=== PATIENT | male | born 1945 | race Caucasian/White ===

== ENCOUNTER 2022-04-16 10:26 | Emergency (ER) | payer MEDICARE ==
[2022-04-16 11:29] VITALS: O2SAT 98
[2022-04-16] MEDS ORDERED: TORAdol 30 mg Injection IM ONE (12:45)
[2022-04-16] MEDS ORDERED: TORAdol 30 mg Injection ONE (12:47)
--- NOTE | 2022-04-16 12:49 | ERPHSYRPT ---
- History of Present Illness Source: patient Exam Limitations: no limitations Patient Subjective Stated Complaint: Pt states "I have a chipped tooth and it started to swell up a couple of days ago and it is hurting." Triage Nursing Assessment: Pt presented alert and oriented X 3, skin pwd. PT ambulates iwth an upright steady gait, able to speak in clear full sentences pt in no apparent respiratory distress. Pt has slight swelling noted to lower left jaw. Physician History: 77 yo wm w poor dentition complains of dental pain x 8 days. Pain is 10 on scale. He has multiple missing teeth and states that one of his remaining teeth was fractured 1 year ago and now is painful. Chest pain/dyspnea/fever/nausea/vomiting are all denied. he has no trismus or dysphagia. Timing/Duration: days (8 days) Severity: severe ENT Location: dental Prearrival Treatment: no prearrival treatment Associated Symptoms: denies symptoms, tooth pain Allergies/Adverse Reactions: No Known Drug Allergies Allergy (Verified 04/16/22 11:29) Home Medications: Atenolol 50 mg [Tenormin 50 mg] 50 mg PO DAILY 04/16/22 [History] Levothyroxine Sodium [Levothyroxine] 125 mcg PO DAILY 04/16/22 [History] Hx Tetanus, Diphtheria Vaccination/Date Given: Yes Hx Influenza Vaccination/Date Given: No Hx Pneumococcal Vaccination/Date Given: No Immunizations Up to Date: Yes Travel Risk - International Travel Have you traveled outside of the country in past 3 weeks: No - Coronavirus Screening Are you exhibiting any of the following symptoms?: No Close contact with a COVID-19 positive Pt in past 14-21 Days: No - Vaccine Status Have you recieved a Covid-19 vaccination: No - Review of Systems Constitutional: No Symptoms Eyes: No Symptoms Respiratory: No Symptoms Cardiac: No Symptoms Abdominal/Gastrointestinal: No Symptoms Genitourinary Symptoms: No Symptoms Musculoskeletal: No Symptoms Skin: No Symptoms Neurological: No Symptoms Psychological: No Symptoms Endocrine: No Symptoms Hematologic/Lymphatic: No Symptoms Immunological/Allergic: No Symptoms - Past Medical History Pertinent Past Medical History: Yes Cardiac History: High Cholesterol, Hypertension Endocrine Medical History: Hypothyroidism - Past Surgical History Past Surgical History: No - Social History Smoking Status: Former smoker Exposure to second hand smoke: No Drug Use: none Patient Lives Alone: Yes - Nursing Vital Signs Nursing Vital Signs: Initial Vital Signs Temperature 97.3 F 04/16/22 11:24 Pulse Rate 86 04/16/22 11:24 Respiratory Rate 20 04/16/22 11:24 Blood Pressure 186/90 04/16/22 11:24 O2 Sat by Pulse Oximetry 98 04/16/22 11:24 Pain Scale Pain Intensity 2 Hypertension - Physical Exam General Appearance: no apparent distress Eye Exam: bilateral eye: normal inspection, PERRL, EOMI Ear Exam: bilateral ear: auricle normal, canal normal, TM normal Nasal Exam: normal inspection Throat Exam: pharynx normal, dental tenderness (Very few remaining teeth/L inferior incisor fractured/eroded almost to base and TTP/Good airway), No excessive drooling, No foreign body, No mandibular swelling, No maxillary swelling Neck Exam: normal inspection, non-tender, supple, full range of motion, trachea midline Cardiovascular/Respiratory Exam: normal breath sounds, regular rate/rhythm, heart sounds normal Neurologic Exam: alert, oriented x 3, cooperative, physics teacher II-XII nml as tested, normal mood/affect, nml cerebellar function, nml station & gait, sensation nml Skin Exam: normal color, warm, dry, No rash SpO2 Interpretation: normal SpO2: 98 O2 Delivery: Room Air - Course Nursing assessment & vital signs reviewed: Yes Ordered Tests: Medication Summary Discontinued Medications Generic Name Dose Route Start Last Admin Trade Name Kenna PRN Reason Stop Dose Admin Ketorolac Tromethamine 15 mg 04/16/22 12:45 04/16/22 12:50 Ketorolac Tromethamine 30 Mg/Ml Inj IM 04/16/22 12:46 15 mg STAT ONE Administration Ketorolac Tromethamine Confirm 04/16/22 12:47 Ketorolac Tromethamine 30 Mg/Ml Inj Administered 04/16/22 12:48 Dose 30 mg .ROUTE .STK-MED ONE - Progress Progress: improved Progress Note: 04/16/22 15:31 15mg IM Toradol Nursing note and vital signs reviewed No food or housing insecurities noted Pt is a full code Pt has access to meds/healthcare Pt advised to f/u w a dentist Counseled pt/family regarding: diagnosis, need for follow-up - Departure Departure Disposition: Home Clinical Impression: Pain due to dental caries Condition: Stable Critical Care Time: No Referrals: [facility] [Primary Care Provider] - Follow up/PCP as directed Instructions: Tooth Abscess (DC), Tooth Decay, Adult (DC) Additional Instructions: Dentist MICHAEL Toradol as needed for pain Start Penicillin Return to ER for worsening of condition Prescriptions: Penicillin V Potassium 500 mg PO TID #21 tablet Ketorolac Trometh 10 mg Tab [TORAdol 10 MG TABLET] 10 mg PO TID PRN #10 tablet
[2022-04-16 13:18] VITALS: BP 194/102; PULSE 80
== END 2022-04-16 13:18 | disposition home or self-care (01) ==
LOC: ED 10:26
DX: K02.9 Dental caries, unspecified (principal); K08.89 Other specified disorders of teeth and supporting structures; Z79.899 Other long term (current) drug therapy; Z28.310 Unvaccinated for COVID-19; E78.5 Hyperlipidemia, unspecified; I10 Essential (primary) hypertension
CPT/HCPCS: 96372; 99283; J1885